=== PATIENT | female | born 1990 | race Caucasian/White ===

== ENCOUNTER 2025-03-03 12:30 | Emergency (ER) | payer OTHER ==
[~2025-03-03] VITALS: Ht 172.7 cm; Wt 65.8 kg
[2025-03-03 12:44] VITALS: BP 116/68; TEMP 98.2
[2025-03-03 13:24] VITALS: O2SAT 98
== END 2025-03-03 13:25 | disposition home or self-care (01) ==
LOC: ER 12:30
DX: S90.01XA Contusion of right ankle, initial encounter (principal); W22.8XXA Striking against or struck by other objects, initial encounter; Y93.89 Activity, other specified; Y92.89 Other specified places as the place of occurrence of the external cause; Y99.9 Unspecified external cause status
CPT/HCPCS: 73610-TC